=== PATIENT | male | born 1945 | race Caucasian/White ===

== ENCOUNTER → 2017-04-16 12:25 | Outpatient (CLI) | payer MEDICARE, SELFPAY ==
--- NOTE | 2017-04-16 12:33 | XR_ITS ---
XR hip RT 2-3V w/pelvis HISTORY: Right hip pain ITS.REASON: RT HIP PAIN ORDERING PHYSICIAN: Keaton Coelho MD PATIENT AGE: 71 years COMPARISON: None FINDINGS: There are mild osteoarthritic changes both hips. No fracture or dislocation. No lytic or blastic change. Surgical tacks are present in the right lower quadrant. Hypertrophic changes are present on the left at L4-5 and L5-S1 IMPRESSION: Mild osteoarthritis of the hips
== END ==
PROVIDERS: PCP Family Medicine; Visit Provider Family Medicine
DX: M25.551 Pain in right hip (principal)
CPT/HCPCS: 73502

== ENCOUNTER → 2017-04-20 14:07 | Outpatient (CLI) | payer MEDICARE, SELFPAY ==
--- NOTE | 2017-04-20 14:11 | MR_ITS ---
MR lumbar spine wo con, MR 3-d myelogram/MRCP HISTORY: Low back pain with right leg numbness ITS.REASON: INTERVERTEBRAL DISC DISPL ORDERING PHYSICIAN: Referral Provider, PATIENT AGE: 71 years COMPARISON: 09/19/2014 TECHNIQUE: Standard multiplanar multiecho sequences are performed without contrast. 3-D MIP and myelographic images are also rendered and reviewed FINDINGS: The spinal cord ends at the L2 level. There is normal alignment. T12-L1: Mild ligamentum hypertrophy with mild bilateral lateral recess narrowing. L1-L2: Degenerative disc disease with a prominent bulging disc along with facet and ligamentum flavum hypertrophy with severe canal stenosis. There is concentric bulging disc in both the right and left aspect of the disc having the appearance of a broad-based disc protrusion on both sides with decreased bulging of the central aspect of the disc space. This is slightly more prominent towards the right. There is severe bilateral lateral recess and foraminal narrowing as well. There is impingement upon the spinal cord at the cord ends at the next level below this region. There is some increased T2 signal of the cord at this region suggesting some underlying edema or gliotic cyst. Spinal stenosis and bulging disc is worse on today's exam compared to the previous study L2-L3: Bulging disc with facet and ligamentum flavum hypertrophy with bilateral lateral recess narrowing. There is moderate to severe bilateral foraminal narrowing greater on the right. L3-L4: Severe degenerative disc disease with relative loss of the disc space along the left lateral aspect with disc osteophyte complex along with facet and ligamentum flavum hypertrophy causing severe left lateral recess and foraminal narrowing L4-5: Severe degenerative disc disease with loss of the disc space with facet and ligamentum flavum hypertrophy with transverse narrowing of the canal at 9 mm with severe bilateral lateral recess and foraminal narrowing L5-S1: Degenerative disc disease with bulging disc along with facet and ligamentum flavum hypertrophy and endplate osteophytes with severe bilateral lateral recess and foraminal narrowing. The canal measures approximate 10 mm. Incidental note made of left renal cyst at 5 cm. IMPRESSION: Abnormal MRI of the lumbar spine. Multilevel lumbar spondylosis with degenerative disc disease with bulging disc and facet ligamentum hypertrophy with resultant canal stenosis and severe bilateral lateral recess and foraminal narrowing are present as detailed above. Please see above for detail description at each level. Of particular note is severe canal stenosis at L1-L2 which has progressed compared to the previous exam. There is compression upon the spinal cord. Please see above for detailed description
== END ==
PROVIDERS: Family Provider Family Medicine; PCP Family Medicine; Visit Provider Nurse Practitioner Family
DX: M51.26 Other intervertebral disc displacement, lumbar region (principal)
CPT/HCPCS: 72148; 76376

== ENCOUNTER 2023-06-27 15:30 | Outpatient (CLI) | payer MEDICARE, SELFPAY ==
--- NOTE | 2023-06-27 15:33 | US_ITS ---
FINAL REPORT CLINICAL HISTORY: Decreased Pedal Pulses,HTN,HLD,CLAUDICATION,REST PAIN FINDINGS: COMPLETE ANKLE/BRACHIAL INDICES BILATERAL Ankle brachial indices were obtained. The right LAM is 1.3. The left LAM is 1.2. IMPRESSION: ABIs are within normal limits bilaterally. Reviewed, Interpreted and Dictated by Victor Hugo He MD Transcribed by Sneha Gant Authenticated and [facility]
== END 2023-06-27 23:59 | disposition home or self-care (01) ==
LOC: RT 15:31
PROVIDERS: PCP Family Medicine; Visit Provider Nurse Practitioner
DX: R09.89 Other specified symptoms and signs involving the circulatory and respiratory systems (principal); R60.0 Localized edema; I70.213 Atherosclerosis of native arteries of extremities with intermittent claudication, bilateral legs
CPT/HCPCS: 93923